=== PATIENT | male | born 1980 ===

== ENCOUNTER 2017-04-26 15:11 | Emergency (ER) | payer OTHER ==
[2017-04-26] MEDS ORDERED: Epinephrine /Lidocaine HCL 1:100,000/2% 30 ml INJ ONE (15:26)
--- NOTE | 2017-04-26 15:33 | C.PDOC ---
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 Patient denies other injuries, numbness, weakness or any other complaints at this time. Time Seen by Provider: 04/26/17 15:19 Chief Complaint (Nursing): Abnormal Skin Integrity History Per: Patient History/Exam Limitations: no limitations Onset/Duration Of Symptoms: Hrs Current Symptoms Are (Timing): Still Present Location Of Injury: Left: Forearm Past Medical History Reviewed: Historical Data, Nursing Documentation, Vital Signs Vital Signs: Last Vital Signs Temp 97.8 F 04/26/17 16:45 Pulse 68 04/26/17 16:45 Resp 18 04/26/17 16:45 BP 131/80 04/26/17 16:45 Pulse Ox 100 04/26/17 18:11 - Medical History PMH: No Chronic Diseases Family History: States: No Known Family Hx - Social History Hx Alcohol Use: Yes Hx Substance Use: No - Immunization History Hx Tetanus Toxoid Vaccination: No Hx Influenza Vaccination: No Hx Pneumococcal Vaccination: No Review Of Systems Except As Marked, All Systems Reviewed And Found Negative. Musculoskeletal: Positive for: Arm Pain Skin: Negative for: Rash Neurological: Negative for: Weakness, Numbness Physical Exam - Physical Exam Appears: Non-toxic, No Acute Distress Skin: Normal Color, Warm Head: Atraumatic, Normacephalic Extremity: Capillary Refill (<2 seconds), No Deformity, Other (1cm lac to mid left volar forearm, neurovascularly intact, no tendon injury) Neurological/Psych: Oriented x3, Normal Motor, Normal Sensation ED Course And Treatment O2 Sat by Pulse Oximetry: 100 (RA) Pulse Ox Interpretation: Normal Laceration - Laceration Repair left forearm Wound Length (In cm): 1 Description Of Wound: Linear Wound Cleansed With: Betadine, Sterile Saline Anesthesia: Lidocaine 2%, With Epi Wound Closure: Steri Strips, Suture (Three 3-0 stitches) Suture Technique And Material Used: Nylon Wound Complexity: Simple Medical Decision Making Medical Decision Making: Tetanus shot administered by nurse Disposition - Disposition Referrals: [facility] [Outside] Disposition: HOME/ ROUTINE Disposition Time: 16:29 Condition: GOOD Additional Instructions: Keep the wound covered for 2 days. On take cover off and wash twice a day with soap and water. Then apply bacitracin. Sutures to be removed in 14 days. Prescriptions: Bacitracin Ointment [Bacitracin] 30 gm TOP BID #1 tube Instructions: Laceration (DC) Forms: Work Excuse Print Language: PALAUAN - Clinical Impression Clinical Impression: Arm laceration - Scribe Statement The provider has reviewed the documentation as recorded by the Alessandraibmira Segal All medical record entries made by the Alessandraibmira were at my direction and personally dictated by me. I have reviewed the chart and agree that the record accurately reflects my personal performance of the history, physical exam, medical decision making, and the department course for this patient. I have also personally directed, reviewed, and agree with the discharge instructions and disposition.
[2017-04-26] MEDS ORDERED: Lidocaine 2% w Epi 1:100,000 Inj IJ ONE (15:43)
[2017-04-26] MEDS ORDERED: Bacitracin 500 Units/gm Oint Foilpak UD TOP ONE (16:27)
[2017-04-26] MEDS ORDERED: Bacitracin 500 Units/gm Oint Foilpak UD ONE (16:47)
[2017-04-26 17:56] VITALS: BP 131/80; PULSE 68; RESP 18; TEMP 97.8
[2017-04-26 18:08] VITALS: O2SAT 100
== END 2017-04-26 16:45 | disposition home or self-care (01) ==
LOC: C.ER 15:11
DX: S51.812A Laceration without foreign body of left forearm, initial encounter (principal); W45.8XXA Other foreign body or object entering through skin, initial encounter; Y92.89 Other specified places as the place of occurrence of the external cause; Y99.0 Civilian activity done for income or pay

== ENCOUNTER 2017-05-09 13:54 | Emergency (ER) | payer OTHER ==
[2017-05-09 14:04] VITALS: BP 117/74; PULSE 85; RESP 20; TEMP 98.2; O2SAT 98
--- NOTE | 2017-05-09 14:19 | C.PDOC ---
History Of Present Illness 37 y/o male presents to the ED requesting suture removal from left forearm. Laceration was repaired here 2 weeks ago. Otherwise, denies any change in sensation, decreased movement, pain, swelling, discharge, fever, or chills. Time Seen by Provider: 05/09/17 14:07 Chief Complaint (Nursing): Suture/Staple Removal History Per: Patient History/Exam Limitations: no limitations Onset/Duration Of Symptoms: Days Ago (2 weeks ago) Current Symptoms Are (Timing): Still Present Location Of Injury: Left: Arm Quality Of Symptoms: denies: Painful, Itching, Swollen, Draining Severity: None Pain Scale Rating Of: 0 Recent travel outside of the [place]: No Additional History Per: Patient Past Medical History Reviewed: Historical Data, Nursing Documentation, Vital Signs Vital Signs: Last Vital Signs Temp 98.2 F 05/09/17 14:03 Pulse 85 05/09/17 14:03 Resp 20 05/09/17 14:03 BP 117/74 05/09/17 14:03 Pulse Ox 98 05/09/17 14:39 Family History: States: Unknown Family Hx - Social History Hx Alcohol Use: Yes Hx Substance Use: No - Immunization History Hx Tetanus Toxoid Vaccination: No Hx Influenza Vaccination: No Hx Pneumococcal Vaccination: No Review Of Systems Except As Marked, All Systems Reviewed And Found Negative. Constitutional: Negative for: Fever, Chills Musculoskeletal: Negative for: Arm Pain Neurological: Negative for: Weakness, Numbness Physical Exam - Physical Exam Appears: Non-toxic, No Acute Distress Skin: Warm, Dry, Other (3 sutures intact to left forearm, no discharge, or surrounding erythema) Head: Atraumatic, Normacephalic Eye(s): bilateral: Normal Inspection Neck: Normal ROM, Supple Extremity: Normal ROM (FROM of left arm), No Tenderness, Capillary Refill (< 2 sec.), No Deformity, No Swelling Pulses: Left Radial: Normal, Right Radial: Normal Neurological/Psych: Oriented x3, Normal Speech, Normal Motor, Normal Sensation ED Course And Treatment O2 Sat by Pulse Oximetry: 98 (RA) Pulse Ox Interpretation: Normal Progress Note: 2 stitches removed without any difficulty. Patient tolerated well. 1 suture remains intact, will not remove since wound does not appear to be fully healed. Steri-strips applied over the area. Patient is being discharged home, and is instructed to return in 3 days for suture removal. Disposition - Disposition Disposition: HOME/ ROUTINE Disposition Time: 14:18 Condition: STABLE Additional Instructions: Return in 3-4 days for suture removal. 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 - Scribe Statement The provider has reviewed the documentation as recorded by the Scribe Evans Weaver All medical record entries made by the Scribe were at my direction and personally dictated by me. I have reviewed the chart and agree that the record accurately reflects my personal performance of the history, physical exam, medical decision making, and the department course for this patient. I have also personally directed, reviewed, and agree with the discharge instructions and disposition.
== END 2017-05-09 14:24 | disposition home or self-care (01) ==
LOC: C.ER 13:54
DX: Z48.02 Encounter for removal of sutures (principal)

== ENCOUNTER 2017-05-13 17:26 | Emergency (ER) | payer OTHER ==
[2017-05-13 17:29] VITALS: BMI 24.1
[2017-05-13 17:31] VITALS: BP 124/79; PULSE 55; RESP 17; TEMP 97.9; O2SAT 98
--- NOTE | 2017-05-13 18:20 | C.PDOC ---
History Of Present Illness 37 yr old male presents to the ER for suture removal from left forearm. Patient states they were put in approximately 3 weeks ago. States he was seen last week and had only 2 sutures removed and was told to return to have the last one removed. Patient denies fever, shoulder pain, hand pain, weakness or numbness. Time Seen by Provider: 05/13/17 17:48 Chief Complaint (Nursing): Suture/Staple Removal History Per: Patient History/Exam Limitations: no limitations Onset/Duration Of Symptoms: Days Ago (3 weeks ago) Past Medical History Reviewed: Historical Data, Nursing Documentation, Vital Signs Vital Signs: Last Vital Signs Temp 97.9 F 05/13/17 17:30 Pulse 55 L 05/13/17 17:30 Resp 17 05/13/17 17:30 BP 124/79 05/13/17 17:30 Pulse Ox 98 05/13/17 18:21 Family History: States: No Known Family Hx - Social History Hx Alcohol Use: Yes Hx Substance Use: No - Immunization History Hx Tetanus Toxoid Vaccination: No Hx Influenza Vaccination: No Hx Pneumococcal Vaccination: No Review Of Systems Except As Marked, All Systems Reviewed And Found Negative. Constitutional: Negative for: Fever Musculoskeletal: Negative for: Shoulder Pain, Hand Pain Neurological: Negative for: Weakness, Numbness Physical Exam - Physical Exam Appears: Non-toxic, No Acute Distress Skin: Warm, Dry, No Rash Head: Atraumatic, Normacephalic Extremity: Normal ROM, Capillary Refill (<2), No Swelling, Other (Left Forearm - 1 suture present) Neurological/Psych: Oriented x3, Normal Speech, Normal Motor ED Course And Treatment O2 Sat by Pulse Oximetry: 98 (RA ) Pulse Ox Interpretation: Normal Progress Note: 1 suture was removed by my. No signs of infections. Disposition - Disposition Disposition: HOME/ ROUTINE Disposition Time: 18:00 Condition: GOOD Additional Instructions: Thank you for letting us take care of you today. Your provider was Dr. Justin. You were treated for suture removal. The emergency medical care you received today was directed at your acute symptoms. If you were prescribed any medication, please fill it and take as directed. It may take several days for your symptoms to resolve. Return to the Emergency Department if your symptoms worsen, do not improve, or if you have any other problems. Please contact your doctor or call one of the physicians/clinics you have been referred to that are listed on the Patient Visit Information form that is included in your discharge packet. Bring any paperwork you were given at discharge with you along with any medications you are taking to your follow up visit. Our treatment cannot replace ongoing medical care by a primary care provider (PCP) outside of the emergency department. Thank you for allowing the [facility] team to be part of your care today. Follow up with your doctor for any concerns. Instructions: Stitches Removal (ED) Forms: [facility] (Croatian) - Clinical Impression Clinical Impression: Removal of suture - Scribe Statement The provider has reviewed the documentation as recorded by the Marky Sanches Provider Attestation: All medical record entries made by the Marky were at my direction and personally dictated by me. I have reviewed the chart and agree that the record accurately reflects my personal performance of the history, physical exam, medical decision making, and the department course for this patient. I have also personally directed, reviewed, and agree with the discharge instructions and disposition.
== END 2017-05-13 18:08 | disposition home or self-care (01) ==
LOC: C.ER 17:26
DX: Z48.02 Encounter for removal of sutures (principal)

== ENCOUNTER 2018-12-25 12:29 | Emergency (ER) | payer OTHER ==
[2018-12-25 12:53] VITALS: BMI 20.1
[2018-12-25 14:41] VITALS: PULSE 62
--- NOTE | 2018-12-25 15:11 | C.PDOC ---
History Of Present Illness 38 y/o male presents to the ER complaining of reproducible chest pain which has been present for the past 3 days. Patient states that has associated headache and dizziness. Patient reports that the dizziness is worse when he is drinking coffee.He notes that he feels shortness of breath sometimes. He states that he has a non-strenuous job at a [employer]. Currently, patient denies having SOB, fever,chills, nausea, vomiting, and leg swelling. Time Seen by Provider: 12/25/18 14:54 Chief Complaint (Nursing): Palpitations History Per: Patient History/Exam Limitations: no limitations Onset/Duration Of Symptoms: Days Current Symptoms Are (Timing): Still Present Severity: Moderate Past Medical History Reviewed: Historical Data, Nursing Documentation, Vital Signs Vital Signs: Last Vital Signs Temp 98.8 F 12/25/18 12:53 Pulse 62 12/25/18 14:40 Resp 16 12/25/18 14:40 BP 110/72 12/25/18 14:40 Pulse Ox 98 12/25/18 14:40 - Medical History PMH: Hyperthyroidism, Hypothyroidism Other Surgeries: Hx of surgeries Family History: States: No Known Family Hx - Social History Hx Alcohol Use: No Hx Substance Use: No - Immunization History Hx Tetanus Toxoid Vaccination: No Hx Influenza Vaccination: No Hx Pneumococcal Vaccination: No Review Of Systems Except As Marked, All Systems Reviewed And Found Negative. Constitutional: Negative for: Fever, Chills Cardiovascular: Positive for: Chest Pain Respiratory: Negative for: Shortness of Breath Gastrointestinal: Negative for: Nausea, Vomiting Physical Exam - Physical Exam Appears: Non-toxic, No Acute Distress Skin: Normal Color, Warm, Dry Head: Atraumatic, Normacephalic Eye(s): bilateral: Normal Inspection Nose: Normal Oral Mucosa: Moist Neck: Supple Chest: Symmetrical, Tenderness (left sided chest wall tenderness) Cardiovascular: Rhythm Regular Respiratory: Normal Breath Sounds, No Rales, No Rhonchi, No Wheezing Gastrointestinal/Abdominal: Soft, Tenderness (epigastric tenderness), No Guarding, No Rebound Neurological/Psych: Oriented x3, Normal Speech ED Course And Treatment - Laboratory Results Result Diagrams: 12/25/18 14:15 12/25/18 14:15 ECG: Interpreted By Me, Viewed By Me ECG Rhythm: Sinus Bradycardia Rate From EC O2 Sat by Pulse Oximetry: 98 (RA) Pulse Ox Interpretation: Normal Medical Decision Making Medical Decision Making: Plan: --Labs --UA --CXR Disposition Counseled Patient/Family Regarding: Diagnosis, Need For Followup - Disposition Referrals: [facility] [Outside] Disposition: HOME/ ROUTINE Disposition Time: 17:39 Condition: STABLE Prescriptions: Famotidine [Pepcid] 40 mg PO HS #20 tab Ibuprofen [Motrin] 600 mg PO TID #15 tab Instructions: Costochondritis (DC) Forms: [facility] (Puerto Rican), Gen Discharge Inst Puerto Rican - POA Present On Arrival: None - Clinical Impression Clinical Impression: Chest wall pain, Epigastric pain - Scribe Statement The provider has reviewed the documentation as recorded by the Marky Sampson Provider Attestation: All medical record entries made by the Marky were at my direction and personally dictated by me. I have reviewed the chart and agree that the record accurately reflects my personal performance of the history, physical exam, medical decision making, and the department course for this patient. I have also personally directed, reviewed, and agree with the discharge instructions and disposition.
[2018-12-25 15:49] LABS: BASO % 0.6 % (0.0-2.0); EOS % 0.3 % (0.0-4.0); HEMOGLOBIN 14.6 g/dL (12.0-18.0); LYMPH % 18.8 % (20.0-40.0); MEAN CELL VOLUME 90.2 fL (80.0-94.0); MEAN CORPUSCULAR HEMOGLOBIN 31.2 pg (27.0-31.0); MEAN CORPUSCULAR HGB CONC 34.6 g/dL (33.0-37.0); MONO # 0.4 K/uL (0.0-0.8); MONO % 6.5 % (0.0-10.0); NEUT # 4.1 K/uL (1.8-7.0); NEUT % 73.8 % (50.0-75.0); NRBC % 0.1 % (0.0-2.0); RBC 4.67 Mil/uL (4.40-5.90); RED CELL DISTRIBUTION WIDTH 13.5 % (11.5-14.5); WHITE BLOOD COUNT 5.6 K/uL (4.8-10.8)
[2018-12-25] MEDS ORDERED: Belladonna-Phenobarbital PO STA (16:02)
[2018-12-25] MEDS ORDERED: Aluminum Hydroxide/Magnesium Hydroxide Susp (30 mL) PO STA (16:02)
[2018-12-25 16:03] LABS: ALB/GLOB RATIO 1.6 (1.0-2.1); ALBUMIN 4.8 g/dL (3.5-5.0); ALT/SGPT 38 U/L (21-72); AST/SGOT 39 U/L (17-59); BLOOD UREA NITROGEN 19 mg/dL (9-20); CALCIUM 9.6 mg/dl (8.6-10.4); GFR NON-AFRICAN AMERICAN > 60
--- NOTE | 2018-12-25 16:08 | RAD ---
Date of service: 12/25/2018 HISTORY: abd pain COMPARISON: No prior. TECHNIQUE: Chest PA and lateral FINDINGS: LUNGS: No active pulmonary disease. PLEURA: No significant pleural effusion identified. No pneumothorax apparent. CARDIOVASCULAR: No aortic atherosclerotic calcification present. Normal cardiac size. No pulmonary vascular congestion. OSSEOUS STRUCTURES: No significant abnormalities. VISUALIZED UPPER ABDOMEN: Normal. OTHER FINDINGS: None. IMPRESSION: No active disease.
[2018-12-25] MEDS ORDERED: Belladonna-Phenobarbital ONE (16:22)
[2018-12-25 16:23] LABS: URINE BILIRUBIN NEGATIVE (NEGATIVE); URINE BLOOD NEGATIVE (NEGATIVE); URINE CLARITY Clear (Clear); URINE COLOR Yellow (YELLOW); URINE GLUCOSE (UA) NORMAL (Normal); URINE LEUKOCYTE ESTERASE NEG Leu/uL (Negative); URINE PROTEIN NEGATIVE (NEGATIVE); URINE UROBILINOGEN NORMAL mg/dL (0.2-1.0)
[2018-12-25] MEDS ORDERED: Aluminum Hydroxide/Magnesium Hydroxide Susp (30 mL) ONE (16:23)
[2018-12-25 17:51] VITALS: BP 130/76; RESP 18; TEMP 98; O2SAT 96
--- NOTE | 2018-12-27 22:49 | CARD ---
APPROVED REPORT Date of service: 12/25/2018 EKG Measurement Heart [id number] <Conclusion> Sinus bradycardia Otherwise normal ECG
== END 2018-12-25 17:52 | disposition home or self-care (01) ==
LOC: C.ER 12:29
DX: R10.13 Epigastric pain (principal); R07.89 Other chest pain